=== PATIENT | female | born 1950 | race Caucasian/White ===

== ENCOUNTER → 2017-01-06 | Outpatient (CLI) | payer OTHER ==
--- NOTE | 2017-01-06 09:45 | MA ---
Bilateral Digital Diagnostic Mammography with Supplementary Views of the Right Breast Clinical History: 66-year-old female whose mother had breast cancer at age 65 and her paternal grandm other had breast cancer at age 59. The patient is currently taking hormone replacement therapy. She h as noted a dry scaly rash around the 6 o'clock position of the right areola since October. Technique: Digital CC and MLO and true mediolateral views of the right breast, spot compression crani ocaudal view of the anterior right breast and CC and MLO views of the left breast were obtained and c ompared to previous studies dated January 17, 2016, January 13, 2015, January 12, 2014, January 012012, January 08, 2012, January 03, 2011, and December 29, 2009. Additionally, exam is CAD checked. Breast Density: Type C. CAD Evaluation: Reviewed. Findings: There is a heterogeneously dense residual fibroglandular pattern, which is similar in distr ibution to multiple preceding studies. There are no new suspicious clustered microcalcifications. The re is no specific subareolar abnormality, however targeted sonography will be subsequently performed nonetheless. Impression: Needs additional imaging evaluation of the anterior right breast. BI-RADS Category 0, incomplete. Recommendation: Targeted sonography.
--- NOTE | 2017-01-06 10:09 | US ---
Right Breast Sonography Clinical History: 66-year-old female who has noted a scaly dry rash like area in the periareolar aspe ct of the right breast, 6 and 12 o'clock positions. Her mother had breast cancer at age 65, and her p aternal grandmother had breast cancer at age 59. Technique: A linear 12 MHz transducer was used to sonographically evaluate the periareolar and retroa reolar aspects of the right breast. Both the hop separator and the sonologist performed the exam. Comparison Study: Mammography from earlier this morning. Findings: There is normal fibroglandular tissue and appearance of the retroareolar ductal structures. There is no solid mass. Impression: Negative targeted right breast sonography. Recommendation: Further evaluation of the patient's skin condition is suggested with either dermatolo gic or a breast surgical opinion.
== END ==
LOC: BRMIMAGING 08:57
PROVIDERS: ATTEND Internal Medicine
DX: Z12.39 Encounter for other screening for malignant neoplasm of breast (principal); R23.4 Changes in skin texture; Z85.3 Personal history of malignant neoplasm of breast
CPT/HCPCS: 76641-PO; G0204

== ENCOUNTER → 2017-01-09 | Outpatient (CLI) | payer OTHER ==
--- NOTE | 2017-01-09 16:52 | US ---
Bilateral Duplex Carotid Sonography Clinical Indications: 66-year-old female who had a prior transient ischemic attack in October 2016. She has medically-controlled hypertension. Rule out hemodynamically significant stenosis. ICD 10 Diagnostic Code: G45.1 (hemispheric carotid artery syndrome). Technique: The cervical portions of the carotid and vertebral arteries were imaged and interrogated by color and pulsed Doppler. Color and spectral Doppler analysis was performed. Cine clips are stored on PACS. Comparison Study: None. Findings: Right Carotid Artery: The common carotid artery, bulb, and internal and external carotid arteries are well-imaged, with no plaque observed. The peak systolic velocity in the internal carotid artery is 7 2 cm/s, and the internal carotid artery peak diastolic velocity is 31 cm/s. The ICA to CCA systolic a nd diastolic ratios are normal. The right to left ICA systolic ratio is normal. The external carotid artery is patent. Left Carotid Artery: The common carotid artery, bulb, and the internal and external carotid arteries are well-imaged, with no plaque observed. The peak systolic velocity in the internal carotid artery i s 69 cm/s, with a peak diastolic velocity 27 cm/s. The ICA to CCA systolic and diastolic ratios are n ormal. The external carotid artery is patent. Vertebral Arteries: Antegrade flow is shown by pulsed Doppler of each vertebral artery. The peak sys tolic velocity in the right vertebral artery is 49 cm/s, and in the left vertebral artery is 54 cm/s. Impression: 1. There is no sonographic evidence of a hemodynamically significant ICA stenosis. 2. Patent, antegrade vertebral arteries. Measurement of carotid stenosis is based on velocity parameters that correlate the residual internal carotid diameter with [place] Symptomatic Carotid Endarterectomy Trial (NASCET) based stenosis levels.
== END ==
LOC: BRMIMAGING 08:36
PROVIDERS: ATTEND Psychiatry & Neurology Neurology
DX: Z03.89 Encounter for observation for other suspected diseases and conditions ruled out (principal)
CPT/HCPCS: 93880-PO

== ENCOUNTER → 2018-01-08 | Outpatient (CLI) | payer OTHER | LOC: BRMIMAGING 08:28 | PROVIDERS: ATTEND Internal Medicine | DX: Z12.31 Encounter for screening mammogram for malignant neoplasm of breast (principal) ==

== ENCOUNTER → 2018-09-03 | Outpatient (CLI) | payer OTHER | LOC: BMCIMAGING 09:14 | PROVIDERS: ATTEND Physician Assistant | DX: M25.562 Pain in left knee (principal) ==

== ENCOUNTER → 2019-01-13 | Outpatient (CLI) | payer OTHER | LOC: BRMIMAGING 07:59 | PROVIDERS: ATTEND Internal Medicine | DX: Z12.31 Encounter for screening mammogram for malignant neoplasm of breast (principal); Z80.3 Family history of malignant neoplasm of breast ==